=== PATIENT | male | born 2000 | race Caucasian/White ===

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

== ENCOUNTER 2018-02-16 09:54 | Emergency (ER) | payer OTHER ==
[2018-02-16 10:09] VITALS: BP 124/80
== END 2018-02-16 11:27 | disposition home or self-care (01) ==
LOC: ED 09:54
DX: R06.00 Dyspnea, unspecified (principal); Z53.21 Procedure and treatment not carried out due to patient leaving prior to being seen by health care provider

== ENCOUNTER 2018-02-18 00:52 | Emergency (ER) | payer OTHER ==
[2018-02-18] MEDS ORDERED: Ketorolac INJ* 30 MG/ML 1 ML VIAL IV PUSH ONE (01:16)
[2018-02-18] MEDS ORDERED: Albuterol/Ipratropium NEB.SOL* Albuterol 2.5 MG/Ipratropium 0.5 MG 3 ML INH ONE (01:17)
[2018-02-18] MEDS ORDERED: NS 0.9% 1000 ML* 2,000 ML IV ONE (01:17)
--- NOTE | 2018-02-18 01:20 | ED ---
HPI Chest Pain - HPI Summary HPI Summary: This pt is a 17 y/o male presenting to [facility] c/o chest pain since 15:00 yesterday. He states he has been coughing for the past couple of hours, nonproductive cough. Pt reports his chest pain is worse with deep breaths. Denies fever, chills, nausea, vomiting, dizziness. Pt was recently seen at [facility] and placed on Flovent, Prednisone, and Azithromycin. He has been taking these medications for the past 3 days. Pt last took 60 mg of Prednisone today. PMHx: asthma, for which he uses a nebulizer. - History of Current Complaint Chief Complaint: EDShortnessOfBreath Hx Obtained From: Patient Onset/Duration: Started Hours Ago, Still Present Timing: Lasting Hours Current Severity: Severe Pain Intensity: 10 Pain Scale Used: 0-10 Numeric Chest Pain Location: Diffuse Chest Pain Radiates: No Aggravating Factor(s): Nothing Alleviating Factor(s): Nothing Associated Signs and Symptoms: Positive: Chest Pain, Cough. Negative: Dizziness , Shortness of Breath, Fever, Chills, Nausea, Vomiting - Allergy/Home Medications Allergies/Adverse Reactions: Allergies Allergy/AdvReac Type Severity Reaction Status Date / Time No Known Allergies Allergy Verified 02/18/18 00:58 PMH/Surg Hx/FS Hx/Imm Hx Endocrine/Hematology History: Denies: Hx Diabetes Cardiovascular History: Denies: Hx Hypertension Respiratory History: Reports: Hx Asthma - Surgical History Surgery Procedure, Year, and Place: None Infectious Disease History: No Infectious Disease History: Denies: Traveled Outside the [place] in Last 30 Days - Family History Known Family History: Positive: Diabetes - Social History Alcohol Use: None Hx Substance Use: Yes Substance Use Type: Reports: Marijuana Hx Tobacco Use: No Smoking Status (MU): Never Smoked Tobacco Review of Systems Negative: Fever, Chills Positive: Chest Pain Positive: Cough Negative: Vomiting, Nausea Neurological: Other - NEGATIVE: dizziness All Other Systems Reviewed And Are Negative: Yes Physical Exam - Summary Physical Exam Summary: VITAL SIGNS: Reviewed. GENERAL: Patient is a well-developed and nourished male who is lying comfortable in the stretcher. Patient is not in any acute respiratory distress. HEAD AND FACE: No signs of trauma. No ecchymosis, hematomas or skull depressions. No sinus tenderness. EYES: PERRLA, EOMI x 2, No injected conjunctiva, no nystagmus. EARS: Hearing grossly intact. Ear canals and tympanic membranes are within normal limits. MOUTH: Oropharynx within normal limits. NECK: Supple, trachea is midline, no adenopathy, no JVD, no carotid bruit, no c- spine tenderness, neck with full ROM. CHEST: Symmetric, no tenderness at palpation LUNGS: Clear to auscultation bilaterally. No wheezing or crackles. CVS: Regular rate and rhythm, S1 and S2 present, no murmurs or gallops appreciated. ABDOMEN: Soft, non-tender. No signs of distention. No rebound no guarding, and no masses palpated. Bowel sounds are normal. EXTREMITIES: FROM in all major joints, no edema, no cyanosis or clubbing. NEURO: Alert and oriented x 3. No acute neurological deficits. Speech is normal and follows commands. SKIN: Dry and warm Triage Information Reviewed: Yes Vital Signs On Initial Exam: Initial Vitals Temp Pulse Resp BP Pulse Ox 99.4 F 72 16 140/96 100 02/18/18 00:54 02/18/18 00:54 02/18/18 00:54 02/18/18 00:54 02/18/18 00:54 Vital Signs Reviewed: Yes Diagnostics - Vital Signs Vital Signs Temp Pulse Resp BP Pulse Ox 02/18/18 00:54 99.4 F 72 16 140/96 100 - Laboratory Result Diagrams: 02/18/18 01:28 02/18/18 01:28 Lab Statement: Any lab studies that have been ordered have been reviewed, and results considered in the medical decision making process. - Radiology Chest XR Radiology Interpretation Completed By: ED Physician Summary of Radiographic Findings: No acute process. Pending official radiology report. - EKG 01:30 Cardiac Rate: NL - at 74 bpm EKG Rhythm: Sinus Rhythm Summary of EKG Findings: Normal axis. Normal interval. No ischemic changes Re-Evaluation - Re-Evaluation First Eval Re-Evaluation Time: 02:45 Change: Improved Comment: Pt reports feeling better. He will be discharged home. Chest Pain Course/Dx - Course Assessment/Plan: Pt is a 17 y/o male who presents to the ED for chest pain since 15:00 yesterday. He states he has been coughing for the past couple of hours, nonproductive cough. Pt reports his chest pain is worse with deep breaths. Denies fever, chills, nausea, vomiting, dizziness. Pt was recently seen at [facility] and placed on Flovent, Prednisone, and Azithromycin. He has been taking these medications for the past 3 days. Pt last took 60 mg of Prednisone today. Chest XR shows no acute process. EKG is normal sinus rhythm at 74 bpm. In the ED course pt was given IV fluids, duoneb, Toradol, Ativan, and Percocet. Pt reports his pain is better after medications. Pt will be discharged home with follow up from his PCP. He will be given a prescription for Motrin. Pt is instructed to return to the ED for any worsening symptoms. - Diagnoses Provider Diagnoses: Chest wall pain Discharge - Sign-Out/Discharge Documenting (check all that apply): Patient Departure - Discharge home - Discharge Plan Condition: Stable Disposition: HOME Prescriptions: Ibuprofen TAB* [Motrin TAB* 800 MG] 800 mg PO Q6H PRN #30 tab PRN Reason: Pain Patient Education Materials: Chest Wall Pain (ED) Referrals: [facility] [Outside] Additional Instructions: Please follow up with your primary care provider in 1-2 days. RETURN TO EMERGENCY DEPARTMENT FOR ANY NEW OR WORSENING SYMPTOMS. - Attestation Statements Document Initiated by Scribe: Yes Documenting Scribe: Nadege Balderas Provider For Whom Scribe is Documenting (Include Credential): Serjio Duron MD Scribe Attestation: Nadege Baltazar, scribed for Serjio Duron MD on 02/18/18 at 0311.
[2018-02-18 01:35] LABS: ABS Basophils 0.1 10^3/ul (0-0.2); ABS Eosinophils 0 10^3/ul (0-0.6); ABS Lymphocytes 2.8 10^3/ul (1.0-4.8); ABS Monocytes 1.4 10^3/ul (0-0.8); ABS Neutrophils 13.6 10^3/ul (1.5-7.7); ABS Nucleated RBC 0 10^3/ul; Eosinophil % 0.1 % (0-6); Hematocrit 46 % (42-52); Hemoglobin 16.1 g/dl (14.0-18.0); Lymphocyte % 15.5 % (25-47); Mean Corpuscular HGB Conc 35 g/dl (31-36); Mean Corpuscular Hemoglobin 30 pg (27-31); Mean Corpuscular Volume 87 fL (80-94); Mean Platelet Volume 7.4 fL (7.4-10.4); Nucleated Red Blood Cells % 0.2; Platelet Count 245 10^3/ul (150-450); Red Blood Count 5.31 10^6/ul (4.00-5.40); Red Cell Distribution Width 14 % (10.5-15); White Blood Count 17.8 10^3/ul (3.5-10.8)
[2018-02-18 01:53] LABS: EGFR Non-African American 95.2 (>60)
[2018-02-18] MEDS ORDERED: LORazepam INJ* 2 MG/ML 1 ML VIAL IV PUSH ONE (02:16)
[2018-02-18] MEDS ORDERED: oxyCODONE/Acetamin 5/325 MG* TAB PO ONE (02:16)
[2018-02-18 03:08] VITALS: BP 153/87
--- NOTE | 2018-02-18 08:22 | ED ---
Progress - Progress Note Progress Note: Patient's final chest x-ray read reveals subcutaneous emphysema of the neck with pneumomediastinum. His original chest x-ray was read as normal. Spoke with patient at 8:15 AM who reports he is still having some chest and neck pain and agrees to come back to the emergency department as soon as possible. He denies shortness of breath. Advised ambulance or coordination of care with [facility] if he is unsure of how to proceed however he reassures me he will be over as soon as possible. Registration, charge and Dr. Hernandez sawyer. Re-Evaluation - Re-Evaluation First Eval Re-Evaluation Time: 02:45 Change: Improved Comment: Pt reports feeling better. He will be discharged home. Course/Dx - Diagnoses Provider Diagnoses: Chest wall pain Discharge - Sign-Out/Discharge Documenting (check all that apply): Post-Discharge Follow Up - Discharge Plan Condition: Stable Disposition: HOME Prescriptions: Ibuprofen TAB* [Motrin TAB* 800 MG] 800 mg PO Q6H PRN #30 tab PRN Reason: Pain Patient Education Materials: Chest Wall Pain (ED) Referrals: [facility] [Outside] Additional Instructions: Please follow up with your primary care provider in 1-2 days. RETURN TO EMERGENCY DEPARTMENT FOR ANY NEW OR WORSENING SYMPTOMS. - Billing Disposition and Condition Condition: STABLE Disposition: Home
== END 2018-02-18 03:10 | disposition home or self-care (01) ==
LOC: ED 00:52
DX: R07.89 Other chest pain (principal); R05 Cough; R06.02 Shortness of breath; J45.909 Unspecified asthma, uncomplicated
CPT/HCPCS: 36415; 71045; 80053; 82550; 82553; 84484; 85025; 85379; 93005; 96374; 96375; 99283; A9270-GY; J1885; J2060

== ENCOUNTER 2018-02-18 08:36 | Emergency (ER) | payer OTHER ==
[2018-02-18] MEDS ORDERED: NS 0.9% 1000 ML* 1,000 ML IV ONE (09:15)
--- NOTE | 2018-02-18 09:15 | ED ---
HPI Chest Pain - HPI Summary HPI Summary: Patient is a 17 y/o M w/ c/o chest pain, SOB, and severe cough onsetting 1500 yesterday. He was seen at [facility] [place], CXR reading from provider report stated, "No acute process. Pending official radiology report." Patient was discharged to home with diagnosis of chest wall pain. However, official radiology report stated "IMPRESSION: SUBCUTANEOUS EMPHYSEMA OF THE NECK WITH PNEUMOMEDIASTINUM." BEBETO Cardozo called patient and informed him of readings. Per Pricilla Cardozo's report, "Spoke with patient at 8:15 AM who reports he is still having some chest and neck pain and agrees to come back to the emergency department as soon as possible." It is also noted that the patient "reassures me he will be over as soon as possible." In the room, patient is upset he was discharged and then called back. He states, "I feel a huge air bubble around my heart. In room he states he came in last night with SOB, "11/10" chest pain, neck pain and "severe", non-productive cough. He denies fever, N/V. Pain is reported to have lessened since last night. Patient reports that he "smokes a ton" of marijuana but has not done so in the past five days. He denies allergies to medications in the room. PMHx of asthma is reported, but patient states he has never had "bad asthma". On triage, pain is rated 6/10, deep breaths are noted to aggravate Sx. Home medications and allergies are reviewed. - History of Current Complaint Chief Complaint: EDGeneral Time Seen by Provider: 02/18/18 09:01 Hx Obtained From: Patient Onset/Duration: Started Days Ago - yesterday, Still Present - pain has lessened since last night Timing: Constant, Lasting Days - yesterday Initial Severity: Severe - "11/10" Current Severity: Moderate - 6/10 Pain Intensity: 6 Pain Scale Used: 0-10 Numeric - 6/10 Character: Other: - "huge air bubble around my heart" Aggravating Factor(s): Deep Breaths Alleviating Factor(s): Nothing Associated Signs and Symptoms: Positive: Chest Pain, Shortness of Breath, Cough , Nonproductive Cough, Other: - neck pain. Negative: Fever, Nausea, Vomiting - Allergy/Home Medications Allergies/Adverse Reactions: Allergies Allergy/AdvReac Type Severity Reaction Status Date / Time Tree Nuts Allergy Anaphylatic Verified 02/18/18 08:52 Shock Home Medications: Home Medications Albuterol HFA INHALER* 2 puff INH DAILY PRN 02/18/18 [History Confirmed 02/18/18 ] Flovent HFA 110 mcg(NF) 2 puff INH DAILY 02/18/18 [History Confirmed 02/18/18] PMH/Surg Hx/FS Hx/Imm Hx Endocrine/Hematology History: Denies: Hx Diabetes Cardiovascular History: Denies: Hx Hypertension Respiratory History: Reports: Hx Asthma - Surgical History Surgery Procedure, Year, and Place: None Infectious Disease History: No Infectious Disease History: Denies: Traveled Outside the [place] in Last 30 Days - Family History Known Family History: Positive: Diabetes - Social History Alcohol Use: None Hx Substance Use: Yes Substance Use Type: Reports: Marijuana Substance Use Comment - Amount & Last Used: was daily smoker until 5 days ago Hx Tobacco Use: No Smoking Status (MU): Never Smoked Tobacco Review of Systems Negative: Fever Positive: Chest Pain Positive: Shortness Of Breath, Cough Negative: Vomiting, Nausea Positive: Other - POSITIVE: neck pain All Other Systems Reviewed And Are Negative: Yes Physical Exam - Summary Physical Exam Summary: GENERAL: Patient is a well-developed and nourished male who is lying comfortable in the stretcher. Patient is not in any acute respiratory distress. HEAD AND FACE: Normocephalic EYES: PERRLA, EOMI x 2. EARS: Hearing grossly intact. MOUTH: Oropharynx within normal limits. NECK: Supple, trachea is midline, no adenopathy, no JVD, no carotid bruit. Neck crepitus is noted. CHEST: Symmetric, no tenderness at palpation LUNGS: Clear to auscultation bilaterally. No wheezing or crackles. CVS: Regular rate and rhythm, S1 and S2 present, no murmurs or gallops appreciated. ABDOMEN: Soft, non-tender. Bowel sounds are normal. No abdominal abnormal pulsations. EXTREMITIES: Full ROM in all major joints, no edema, no cyanosis or clubbing. NEURO: Alert and oriented x 3. No acute neurological deficits. Speech is normal and follows commands. SKIN: Dry and warm Triage Information Reviewed: Yes Vital Signs On Initial Exam: Initial Vitals Temp Pulse Resp BP Pulse Ox 99.2 F 112 18 163/83 100 02/18/18 08:36 02/18/18 08:36 02/18/18 08:36 02/18/18 08:36 02/18/18 08:36 Vital Signs Reviewed: Yes Diagnostics - Vital Signs Vital Signs Temp Pulse Resp BP Pulse Ox 02/18/18 08:36 99.2 F 112 18 163/83 100 - Laboratory Result Diagrams: 02/18/18 09:39 02/18/18 09:39 Lab Statement: Any lab studies that have been ordered have been reviewed, and results considered in the medical decision making process. - CT Neck CT CT Interpretation Completed By: Radiologist Summary of CT Findings: IMPRESSION: #. No etiology for pneumomediastinum with extension into the neck identified. This report was reviewed by ED physician. Chest CT CT Interpretation Completed By: Radiologist Summary of CT Findings: IMPRESSION: 1. PNEUMOMEDIASTINUM WITH SMALL AMOUNT OF PNEUMOPERICARDIUM. 2. SUBCUTANEOUS EMPHYSEMA OF THE DEEP SPACES OF THE NECK. 3. MINIMAL PATCHY AIRSPACE DISEASE OF THE LEFT LOWER LOBE. THIS REPORT WAS REVIEWED BY ED PHYSICIAN. - EKG 0936 Cardiac Rate: NL - rate of 74 BPM EKG Rhythm: Sinus Rhythm Ectopy: PACs Re-Evaluation - Re-Evaluation First Eval Re-Evaluation Time: 10:02 Comment: Transfer center contacted with regards to patient's case. Second Eval Re-Evaluation Time: 10:26 Comment: Patient wants morphine and requests update on his status. Transfer was discussed with patient. Patient wants transfer to [facility]. It was explained that this is out of the normal scope of ambulance/ helicopter range and that any transfer would likely not be covered by insurance and require payment upfront. Patient understands that insurance will likely not cover this patient understands and states Money is not an issue. Third Eval Re-Evaluation Time: 10:59 Comment: Dr. Ng discussed patients case with transfer center and. Patient needs transfer as he needs pneumothorax surgery. Fourth Eval Re-Evaluation Time: 11:10 Comment: [facility] transfer center was reached. ED to ED transfer is noted to be atypical. They are trying to get ahold of the pneumothoracic surgeon and will call back. Fifth Eval Re-Evaluation Time: 11:20 Comment: [employer] So from [facility] states that she will talk with the attending about the case and call back. Patient was updated on transfer situation Sixth + Eval Re-Evaluation Time: 12:12 Comment: Cost of ambulance for transfer was confirmed about discussed with patient. Patient is fine with cost. Chest Pain Course/Dx - Course Course Of Treatment: Patient is a 17 y/o M w/ c/o chest pain, SOB, and severe cough onsetting 1500 yesterday. He was seen at [facility] last night, CXR reading from provider report stated, "No acute process. Pending official radiology report." Patient was discharged to home with diagnosis of chest wall pain. However, official radiology report stated "IMPRESSION: SUBCUTANEOUS EMPHYSEMA OF THE NECK WITH PNEUMOMEDIASTINUM." In the room, he states, "I feel a huge air bubble around my heart. In room he states he came in last night with SOB, "11/10" chest pain, neck pain and "severe", non-productive cough. He denies fever, N/V. Pain is reported to have lessened since last night. Patient reports that he "smokes a ton" of marijuana but has not done so in the past five days. He denies allergies to medications in the room. PMHx of asthma is reported, but patient states he has never had "bad asthma". On physical exam, patient is noted to have neck crepitus. During ED course, patient was given Toradol 30 mg, piperacillin sod/tazobactam sod, morphine 4 mg, Reglan 10 mg, and fluids. Labs showed WBC 13.6, INR 1.14, potassium 3.4, trop 0, CRP high sens 1.71. CT NECK IMPRESSION: #. No etiology for pneumomediastinum with extension into the neck identified. CHEST CT IMPRESSION: 1. PNEUMOMEDIASTINUM WITH SMALL AMOUNT OF PNEUMOPERICARDIUM. 2. SUBCUTANEOUS EMPHYSEMA OF THE DEEP SPACES OF THE NECK. 3. MINIMAL PATCHY AIRSPACE DISEASE OF THE LEFT LOWER LOBE. EKG showed normal sinus rhythm with rate of 74 BPM, PACs. Transfer was discussed with patient. Patient wants transfer to [facility]. It was explained that this is out of the normal scope of ambulance/helicopter range and that any transfer would likely not be covered by insurance and require payment upfront. Patient understands that insurance will likely not cover this patient understands and states Money is not an issue. Cost of ambulance transfer was confirmed with [facility] and discussed with patient, patient still remains agreeable with transfer. Patient's case was discussed with Dipti Lopez NP from [facility]. Dr. Roger will accept patient for transfer, patient will be transferred when bed is available for patient. 1355 - bed assignment for patient obtained, patient will be transferred. Dx of Pneumomediastinum, pneumopericardium. - Diagnoses Provider Diagnoses: Pneumomediastinum, Pneumopericardium - Provider Notifications Discussed Care Of Patient With: Homa Roger Time Discussed With Above Provider: 12:27 Instructed by Provider To: Other - Patient's case was discussed with Dipti Lopez NP. Dr. Roger will accept patient for transfer, patient will be transferred when bed is available for patient. Discharge - Sign-Out/Discharge Documenting (check all that apply): Patient Departure - transfer - Discharge Plan Condition: Good Disposition: TRANS HIGHER LVL OF CARE FAC Referrals: No Primary Care Phys,NOPCP [Primary Care Provider] - - Billing Disposition and Condition Condition: GOOD Disposition: Trans Higher Lvl of Care Fac - Attestation Statements Document Initiated by Scribe: Yes Documenting Scribe: Hugo Lambert Provider For Whom Badnar is Documenting (Include Credential): Ld Ng MD Scribe Attestation: Hugo Baltazar , scribed for Ld Ng MD on 02/18/18 at 1357. Scribe Documentation Reviewed: Yes Provider Attestation: The documentation as recorded by the Hugo márquez accurately reflects the service I personally performed and the decisions made by me, Ld Ng MD
[2018-02-18] MEDS ORDERED: Ketorolac INJ* 30 MG/ML 1 ML VIAL IV PUSH ONE (09:16)
[2018-02-18] MEDS ORDERED: Iohexol 300* (CONTRAST) 10 ML SDV IV ONE (09:28)
[2018-02-18 09:58] LABS: ABS Basophils 0.1 10^3/ul (0-0.2); ABS Eosinophils 0.1 10^3/ul (0-0.6); ABS Lymphocytes 3.6 10^3/ul (1.0-4.8); ABS Monocytes 1.1 10^3/ul (0-0.8); ABS Neutrophils 8.8 10^3/ul (1.5-7.7); ABS Nucleated RBC 0 10^3/ul; Eosinophil % 0.5 % (0-6); Hematocrit 45 % (42-52); Hemoglobin 15.4 g/dl (14.0-18.0); Lymphocyte % 26.6 % (25-47); Mean Corpuscular HGB Conc 34 g/dl (31-36); Mean Corpuscular Hemoglobin 30 pg (27-31); Mean Corpuscular Volume 88 fL (80-94); Mean Platelet Volume 7.6 fL (7.4-10.4); Nucleated Red Blood Cells % 0.1; Platelet Count 231 10^3/ul (150-450); Red Blood Count 5.08 10^6/ul (4.00-5.40); Red Cell Distribution Width 14 % (10.5-15); White Blood Count 13.6 10^3/ul (3.5-10.8)
[2018-02-18 10:07] LABS: INR 1.14 (0.77-1.02)
[2018-02-18 10:13] LABS: EGFR Non-African American 86.2 (>60)
[2018-02-18] MEDS ORDERED: Piperacillin/Tazobac ADVAN(*) 3.375 GM in NS 0.9% 100 ML* 100 ML IVPB ONE (10:22)
[2018-02-18] MEDS ORDERED: Metoclopramide IV* 5 MG/ML 2 ML VIAL ONE (10:38)
[2018-02-18] MEDS ORDERED: Morphine VIAL* 4 MG/ML VIAL (1 ml vial) IV ONE ×2 (10:38→10:42)
[2018-02-18] MEDS ORDERED: Metoclopramide IV* 5 MG/ML 2 ML VIAL IV ONE (10:42)
[2018-02-18] MEDS ORDERED: fentaNYL* 50 MCG/ML 2 ML VIAL (100 MCG VIAL) IV SLOW PU ONE (15:08)
[2018-02-18] MEDS ORDERED: fentaNYL* 50 MCG/ML 2 ML VIAL (100 MCG VIAL) ONE (15:11)
[2018-02-18] MEDS ORDERED: NS 0.9% 1000 ML* 1,000 ML IV SCH (15:15)
[2018-02-18 15:27] VITALS: BP 137/74
== END 2018-02-18 15:24 | disposition short-term general hospital (02) ==
LOC: ED 08:36
DX: J98.2 Interstitial emphysema (principal); I31.9 Disease of pericardium, unspecified; J45.909 Unspecified asthma, uncomplicated
CPT/HCPCS: 36415; 70491; 71260; 80053; 83605; 84484; 85025; 85610; 85652; 85730; 86141; 87040; 93005; 96361; 96374; 96375; 99284; J1885; J2270; J2543; J2765; J3010; Q9967

== ENCOUNTER 2019-02-03 15:19 | Emergency (ER) | payer OTHER ==
[2019-02-03] MEDS ORDERED: Ibuprofen TAB* 600 MG PO ONE (17:28)
--- NOTE | 2019-02-03 17:28 | ED ---
GI/ HPI - HPI Summary HPI Summary: Patient complains of right testicle pain 1 hour. Pain described as constant, dull, sometimes radiating to left side. Patient went to primary care and was referred to the ED to rule out torsion. Denies history of trauma, penile discharge, urine symptoms, abdominal pain, change in BM, redness or swelling to testicles. Denies history of testicle pain. Denies fever. Medical history is none. - History of Current Complaint Chief Complaint: EDUrogenitalProblems Time Seen by Provider: 02/03/19 16:43 Stated Complaint: GROIN PAIN Hx Obtained From: Patient Onset/Duration: Started Minutes Ago Timing: Constant Severity: Moderate Current Severity: Moderate Pain Intensity: 5 Additional Locations for Males: Testicles Pain Characteristics: Dull Associated Signs and Symptoms: Positive: Negative - Allergy/Home Medications Allergies/Adverse Reactions: Allergies Allergy/AdvReac Type Severity Reaction Status Date / Time Tree Nuts Allergy Anaphylatic Verified 05/31/18 14:32 Shock Peanuts Allergy Anaphylatic Uncoded 02/03/19 15:30 Shock PMH/Surg Hx/FS Hx/Imm Hx Endocrine/Hematology History: Denies: Hx Diabetes Cardiovascular History: Denies: Hx Hypertension Respiratory History: Reports: Hx Asthma History: Denies: Hx Dialysis Sensory History: Denies: Hx Eye Prosthesis Opthamlomology History: Denies: Hx Legally Blind EENT History: Denies: Hx Deafness Neurological History: Denies: Hx Dementia - Surgical History Surgery Procedure, Year, and Place: None Infectious Disease History: No Infectious Disease History: Denies: Traveled Outside the [place] in Last 30 Days - Family History Known Family History: Positive: Diabetes - Social History Alcohol Use: None Hx Substance Use: Yes Substance Use Type: Reports: Marijuana Substance Use Comment - Amount & Last Used: was daily smoker until 5 days ago Hx Tobacco Use: No Smoking Status (MU): Never Smoked Tobacco Review of Systems Constitutional: Negative Eyes: Negative ENT: Negative Cardiovascular: Negative Respiratory: Negative Gastrointestinal: Negative Genitourinary: Other Musculoskeletal: Negative Skin: Negative Neurological: Negative Psychological: Normal All Other Systems Reviewed And Are Negative: Yes Physical Exam Triage Information Reviewed: Yes Vital Signs On Initial Exam: Initial Vitals Temp Pulse Resp BP Pulse Ox 97.8 F 67 16 126/72 100 02/03/19 15:26 02/03/19 15:26 02/03/19 15:26 02/03/19 15:26 02/03/19 15:26 Vital Signs Reviewed: Yes Appearance: Positive: Well-Appearing Skin: Positive: Warm Head/Face: Positive: Normal Head/Face Inspection Eyes: Positive: Normal Neck: Positive: Supple Respiratory/Lung Sounds: Positive: Clear to Auscultation Cardiovascular: Positive: Normal Abdomen Description: Positive: Nontender Male Genital Exam: Positive: Normal Genitalia, Testicular Tenderness (R). Negative: Bleeding, Epididymal Tenderness, Erythema, Hernia Mass, Inguinal Tenderness, Lesions, Testicular Tenderness (L), Urethral Discharge Musculoskeletal: Positive: Normal Neurological: Positive: Normal Psychiatric: Positive: Normal AVPU Assessment: Alert - Dow[place] Coma Scale Best Eye Response: 4 - Spontaneous Best Motor Response: 6 - Obeys Commands Best Verbal Response: 5 - Oriented Coma Scale Total: 15 Procedures - Sedation Patient Received Moderate/Deep Sedation with Procedure: No Diagnostics - Vital Signs Vital Signs Temp Pulse Resp BP Pulse Ox 02/03/19 15:26 97.8 F 67 16 126/72 100 - Laboratory Lab Statement: Any lab studies that have been ordered have been reviewed, and results considered in the medical decision making process. GIGU Course/Dx - Course Course Of Treatment: Patient complains of right testicle pain 1 hour. Pain described as constant, dull, sometimes radiating to left side. Patient went to primary care and was referred to the ED to rule out torsion. Denies history of trauma, penile discharge, urine symptoms, abdominal pain, change in BM, redness or swelling to testicles. Denies history of testicle pain. Denies fever. Medical history is none. Vital signs within normal limits. Ultrasound of testicles negative. Advised trial of ibuprofen. Rx for doxycycline sent to the pharmacy if symptoms persist. - Diagnoses Provider Diagnoses: Testicle pain Discharge ED - Sign-Out/Discharge Documenting (check all that apply): Patient Departure - Discharge Plan Condition: Stable Disposition: HOME Prescriptions: DOXYcycline CAP(*) [DOXYcycline 100MG CAP(*)] 100 mg PO BID #20 cap Patient Education Materials: Testicle Pain (ED) Referrals: [facility] - Devonte ALEXIS [Primary Care Provider] - Teodoro Aparicio MD [Medical Doctor] - Additional Instructions: Alternate ibuprofen 600 mg with Tylenol 650 mg every 3 hours for pain for up to 3 days. If symptoms persist try antibiotics as prescribed. If symptoms still persist follow-up with urology Dr. Aparicio for further evaluation. Return to the ED for any symptoms. - Billing Disposition and Condition Condition: STABLE Disposition: Home - Attestation Statements Provider Attestation: I was available for consult. This patient was seen by the MO[facility]. The patient was not presented to, seen by, or examined by me. Miguelito Nixon MD
[2019-02-03 17:40] VITALS: BP 0/0
== END 2019-02-03 17:31 | disposition home or self-care (01) ==
LOC: ED 15:19
DX: N50.811 Right testicular pain (principal); J45.909 Unspecified asthma, uncomplicated; Z79.899 Other long term (current) drug therapy
CPT/HCPCS: 76870; 99282